=== PATIENT | male | born 1945 | race Caucasian/White ===

== ENCOUNTER → 2021-12-20 | Outpatient (CLI) | payer OTHER ==
[~2021-12-20] MED LIST: LISI1TAB51 PO; LOVASTATIN PO; TAMS0.4C32 PO
== END | disposition home or self-care (01) ==
LOC: SHCH 10:24
PROVIDERS: ATTEND Internal Medicine Cardiovascular Disease
DX: I35.0 Nonrheumatic aortic (valve) stenosis (principal); I11.9 Hypertensive heart disease without heart failure; I70.293 Other atherosclerosis of native arteries of extremities, bilateral legs; E78.5 Hyperlipidemia, unspecified
CPT/HCPCS: 93306; 93925

== ENCOUNTER → 2021-12-26 | Outpatient (CLI) | payer OTHER ==
[~2021-12-26] VITALS: Ht 175.3 cm; Wt 89.8 kg
[~2021-12-26] MED LIST changes: +REGADENOSON 0.4 MG/5 ML PF SYG IVP SCH
== END | disposition home or self-care (01) ==
LOC: SHCH 08:33
PROVIDERS: ATTEND Internal Medicine Cardiovascular Disease
DX: I20.9 Angina pectoris, unspecified (principal); R06.09 Other forms of dyspnea
CPT/HCPCS: 78452; 93017; 96374; A9500 ×2; J2785

== ENCOUNTER 2022-02-06 08:55 | Day surgery (SDC) | payer OTHER ==
[2022-02-05 10:00] LABS: HEMATOCRIT 37.7 % (42-54); LYMPHOCYTES % (AUTO) 29.1 % (21.0-51.0); MEAN CORPUSCULAR HEMOGLOBIN 33.5 pg (27.0-33.0); MEAN CORPUSCULAR HGB CONC 33.4 g/dL (32.0-36.0); MEAN CORPUSCULAR VOLUME 100.3 fL (79-99); MONOCYTES % (AUTO) 16.8 % (3.0-13.0); NEUTROPHILS % (AUTO) 49.6 % (40.0-77.0); PLATELET COUNT (AUTO) 197 K/uL (130-400); RED BLOOD CELL COUNT(AUTO) 3.76 MIL/uL (4.50-6.20); RED CELL DISTRIBUTION WIDTH 12.4 % (11.0-15.5); WHITE BLOOD COUNT (AUTO) 4.1 K/uL (4.8-10.8)
[2022-02-05 10:06] LABS: APPEARANCE,URINE Clear (CLEAR); BILIRUBIN,URINE Negative (NEGATIVE); COLOR,URINE Yellow (YELLOW); GLUCOSE, URINE (UA) Negative (NEGATIVE); KETONES,URINE Negative (NEGATIVE); LEUKOCYTE ESTERASE ,URINE Trace (NEGATIVE); NITRATE,URINE Negative (NEGATIVE); OCCULT BLOOD,URINE Negative (NEGATIVE); PROTEIN,URINE Negative (NEGATIVE)
[2022-02-05 10:16] LABS: CREATININE 0.8 mg/dL (0.5-1.5); POTASSIUM 4.7 mmol/L (3.5-5.1)
[2022-02-05 10:18] LABS: INR 0.95 (0.85-1.15); PROTHROMBIN TIME 10.4 SEC (9.6-11.6)
[2022-02-05 10:19] LABS: PARTIAL THROMBOPLASTIN TIME 30.1 SEC (26.3-35.5)
[2022-02-05 10:24] LABS: B-TYPE NATRIURETIC PEPTIDE 245 pg/mL (0-100)
[2022-02-05 10:36] LABS: BACTERIA,URINE Rare /HPF (None Seen); RBC,URINE 0-1 /HPF (0-1); SQUAMOUS EPITHELIAL CELL,UR Rare /HPF (0-2); WBC,URINE 0-1 /HPF (0-1)
[2022-02-06] VITALS (9 sets, daily range): BP systolic 116–139; BP diastolic 62–75
[~2022-02-06 08:55] MED LIST changes: +0.9% NACL 500ML IV.SOLN 500 ML IV SCH; +ASPI-1443 PO; +LISI10TA24 PO; -LISI1TAB51 PO; +LOVA40TA2 PO; -LOVASTATIN PO; -REGADENOSON 0.4 MG/5 ML PF SYG IVP SCH; -TAMS0.4C32 PO
[2022-02-06] MEDS ORDERED: ASPI-1026 PO (10:13)
[2022-02-06] MEDS ORDERED: 0.9%NACL 1000ML 1,000 ML IV ONE (10:28)
[2022-02-06] MEDS ORDERED: NITROGLYCERIN 50MG VIAL ONE (11:17)
[2022-02-06] MEDS ORDERED: LIDOCAINE HCL 400MG/20ML VIAL ONE (11:17)
[2022-02-06] MEDS ORDERED: HEPARIN 10,000 UNIT/10ML (1,000 UNIT/ML) VIAL ONE (11:17)
[2022-02-06] MEDS ORDERED: IOHEXOL 350 MG/ML 100ML INFUS..BTL IV ONE (11:17)
[2022-02-06] MEDS ORDERED: MIDAZOLAM HCL 1 MG/ML 2ML VIAL ONE (11:17)
[2022-02-06] MEDS ORDERED: BIVALIRUDIN 250 MG/VIAL IV ONE (11:17)
[2022-02-06] MEDS ORDERED: IOHEXOL-350 50ML VIAL IV ONE (11:17)
[2022-02-06] MEDS ORDERED: FENTANYL CITRATE PF 50 MCG/1 ML 2ML VIAL ONE (11:17)
[2022-02-06] MEDS ORDERED: LABETALOL 20MG SYG IV ONE ×2 (13:10→13:21)
[2022-02-06] MEDS ORDERED: METOPROLOL TARTRATE 1 MG/ML 5ML VIAL IV PRN (13:30)
[2022-02-06] MEDS ORDERED: DEXTROSE 50%-WATER 50 ML DISP.SYRIN IV PRN (13:30)
[2022-02-06] MEDS ORDERED: 0.9%NACL 1000ML 1,000 ML IV SCH (13:30)
[2022-02-06] MEDS ORDERED: GLUCAGON 1MG KIT 1 MG ML IM PRN (13:30)
[2022-02-06] MEDS ORDERED: NITROGLYCERIN 0.4 MG SL TAB SL PRN (13:30)
== END 2022-02-06 17:45 | disposition home or self-care (01) ==
LOC: DAH 08:55
PROVIDERS: ATTEND Internal Medicine Cardiovascular Disease
DX: I35.0 Nonrheumatic aortic (valve) stenosis (principal); I25.110 Atherosclerotic heart disease of native coronary artery with unstable angina pectoris; I11.0 Hypertensive heart disease with heart failure; I50.32 Chronic diastolic (congestive) heart failure; I87.2 Venous insufficiency (chronic) (peripheral); E78.5 Hyperlipidemia, unspecified; E11.51 Type 2 diabetes mellitus with diabetic peripheral angiopathy without gangrene; E66.3 Overweight; H34.01 Transient retinal artery occlusion, right eye; Z79.82 Long term (current) use of aspirin; Z68.29 Body mass index [BMI] 29.0-29.9, adult; Z87.891 Personal history of nicotine dependence; Z82.49 Family history of ischemic heart disease and other diseases of the circulatory system
CPT/HCPCS: 36415; 71045; 80048; 81001; 83880; 85025; 85610; 85730; 93005; 93460; A4215; A4216; A4221; A4222; A4223 ×3; A4606; A4663; C1894 ×3; J1644; J2250; J3010; J3490 ×2; J7030; Q9965 ×2; Q9967 ×2; 93456; 96360; 96361; 99156; 99157; J0583

== ENCOUNTER → 2022-02-22 | Outpatient (CLI) | payer OTHER ==
[~2022-02-22] MED LIST changes: -0.9% NACL 500ML IV.SOLN 500 ML IV SCH; +ASPI-1026 PO; -ASPI-1443 PO
== END | disposition home or self-care (01) ==
LOC: SHCH 12:20
PROVIDERS: ATTEND Internal Medicine Cardiovascular Disease
DX: I87.2 Venous insufficiency (chronic) (peripheral) (principal)
CPT/HCPCS: 93970

== ENCOUNTER → 2022-11-07 | Outpatient (CLI) | payer OTHER | END | disposition home or self-care (01) | LOC: SHCH 10:24 | PROVIDERS: ATTEND Internal Medicine Cardiovascular Disease | DX: I11.9 Hypertensive heart disease without heart failure (principal); E78.5 Hyperlipidemia, unspecified; Z95.1 Presence of aortocoronary bypass graft; Z95.2 Presence of prosthetic heart valve | CPT/HCPCS: 93306 ==

== ENCOUNTER → 2023-04-30 | Outpatient (CLI) | payer OTHER | END | disposition home or self-care (01) | LOC: SHCH 07:32 | PROVIDERS: ATTEND Internal Medicine Cardiovascular Disease | DX: I70.293 Other atherosclerosis of native arteries of extremities, bilateral legs (principal); I71.40 Abdominal aortic aneurysm, without rupture, unspecified; I70.0 Atherosclerosis of aorta; I70.8 Atherosclerosis of other arteries; I87.2 Venous insufficiency (chronic) (peripheral); Z95.1 Presence of aortocoronary bypass graft | CPT/HCPCS: 93925; 93970; 93978 ==

== ENCOUNTER → 2023-06-28 | Outpatient (CLI) | payer OTHER ==
[~2023-06-28] VITALS: Ht 175.3 cm; Wt 89.9 kg
[~2023-06-28] MED LIST changes: +AEC81 PO; +MULT-1367 PO
[2023-06-28 12:52] LABS: BASOPHILS # (AUTO) 0.04 K/uL (0.00-0.20); BASOPHILS % (AUTO) 0.9 % (0.0-5.0); EOSINOPHILS # (AUTO) 0.19 K/uL (0.00-0.70); EOSINOPHILS % (AUTO) 4.1 % (0.0-8.0); HEMATOCRIT 33.1 % (42-54); IMMATURE GRANULOCYTE ABSOLUTE 0.01 K/uL (0-1); LYMPHOCYTES # (AUTO) 1.6 K/uL (1.0-4.8); LYMPHOCYTES % (AUTO) 33.8 % (21.0-51.0); MEAN CORPUSCULAR HEMOGLOBIN 35.4 pg (27.0-33.0); MEAN CORPUSCULAR HGB CONC 33.8 g/dL (32.0-36.0); MEAN CORPUSCULAR VOLUME 104.7 fL (79-99); MONOCYTES # (AUTO) 0.6 K/uL (0.1-1.0); MONOCYTES % (AUTO) 12.2 % (3.0-13.0); NEUTROPHILS # (AUTO) 2.3 K/uL (1.8-7.7); NEUTROPHILS % (AUTO) 48.8 % (40.0-77.0); PLATELET COUNT (AUTO) 162 K/uL (130-400); RED BLOOD CELL COUNT(AUTO) 3.16 MIL/uL (4.50-6.20); RED CELL DISTRIBUTION WIDTH 12.9 % (11.0-15.5); WHITE BLOOD COUNT (AUTO) 4.7 K/uL (4.8-10.8)
[2023-06-28 13:01] LABS: CREATININE 0.8 mg/dL (0.5-1.5); POTASSIUM 4.8 mmol/L (3.5-5.1)
[2023-06-28 13:04] LABS: INR < 0.93 (0.85-1.15); PROTHROMBIN TIME 10.3 SEC (9.6-11.6)
[2023-06-28 13:05] LABS: PARTIAL THROMBOPLASTIN TIME 30.5 SEC (26.3-35.5)
[2023-06-28 13:24] VITALS: BP 158/74; PULSE 80; RESP 18
== END | disposition home or self-care (01) ==
LOC: DAH 10:00 → EDSTATUS 12:00
PROVIDERS: ATTEND Internal Medicine Cardiovascular Disease
DX: Z01.812 Encounter for preprocedural laboratory examination (principal); I70.203 Unspecified atherosclerosis of native arteries of extremities, bilateral legs; I35.0 Nonrheumatic aortic (valve) stenosis; I11.9 Hypertensive heart disease without heart failure; I87.2 Venous insufficiency (chronic) (peripheral); E78.5 Hyperlipidemia, unspecified; I25.10 Atherosclerotic heart disease of native coronary artery without angina pectoris; I25.84 Coronary atherosclerosis due to calcified coronary lesion; R06.09 Other forms of dyspnea; R07.89 Other chest pain; Z95.1 Presence of aortocoronary bypass graft; Z95.2 Presence of prosthetic heart valve; Z79.899 Other long term (current) drug therapy; Z79.82 Long term (current) use of aspirin
CPT/HCPCS: 36415; 80048; 85025; 85610; 85730

== ENCOUNTER 2023-07-17 08:57 | Day surgery (SDC) | payer OTHER ==
[2023-07-15 14:32] LABS: BASOPHILS # (AUTO) 0.05 K/uL (0.00-0.20); BASOPHILS % (AUTO) 0.9 % (0.0-5.0); EOSINOPHILS # (AUTO) 0.25 K/uL (0.00-0.70); EOSINOPHILS % (AUTO) 4.6 % (0.0-8.0); HEMATOCRIT 32.6 % (42-54); IMMATURE GRANULOCYTE ABSOLUTE 0.02 K/uL (0-1); LYMPHOCYTES # (AUTO) 1.7 K/uL (1.0-4.8); LYMPHOCYTES % (AUTO) 31.4 % (21.0-51.0); MEAN CORPUSCULAR HGB CONC 33.4 g/dL (32.0-36.0); MEAN CORPUSCULAR VOLUME 104.8 fL (79-99); MONOCYTES # (AUTO) 0.7 K/uL (0.1-1.0); MONOCYTES % (AUTO) 12.8 % (3.0-13.0); NEUTROPHILS # (AUTO) 2.7 K/uL (1.8-7.7); NEUTROPHILS % (AUTO) 49.9 % (40.0-77.0); PLATELET COUNT (AUTO) 211 K/uL (130-400); RED BLOOD CELL COUNT(AUTO) 3.11 MIL/uL (4.50-6.20); RED CELL DISTRIBUTION WIDTH 12.8 % (11.0-15.5); WHITE BLOOD COUNT (AUTO) 5.5 K/uL (4.8-10.8)
[2023-07-15 14:44] LABS: CREATININE 0.8 mg/dL (0.5-1.5); POTASSIUM 4.8 mmol/L (3.5-5.1)
[2023-07-15 14:46] LABS: INR < 0.93 (0.85-1.15); PROTHROMBIN TIME 10.3 SEC (9.6-11.6)
[2023-07-15 14:47] LABS: PARTIAL THROMBOPLASTIN TIME 30.3 SEC (26.3-35.5)
[2023-07-15 14:53] VITALS: BP 154/75; PULSE 82; RESP 18
[2023-07-17] VITALS (10 sets, daily range): BP systolic 108–167; BP diastolic 56–86; PULSE 80–94; RESP 11–18
[~2023-07-17] VITALS: Ht 175.3 cm; Wt 90.3 kg
[~2023-07-17 08:57] MED LIST changes: -ASPI-1026 PO
[2023-07-17] MEDS ORDERED: 0.9%NACL 1000ML 1,000 ML IV ONE (09:51)
[2023-07-17] MEDS ORDERED: HEPARIN 10,000 UNIT/10ML (1,000 UNIT/ML) VIAL ONE (11:31)
[2023-07-17] MEDS ORDERED: LIDOCAINE HCL 400MG/20ML VIAL ONE (11:31)
[2023-07-17] MEDS ORDERED: IODIXANOL 320 MG/ML 100 ML VIAL ONE (11:31)
[2023-07-17] MEDS ORDERED: FENTANYL CITRATE PF 50 MCG/1 ML 2ML VIAL ONE (12:04)
[2023-07-17] MEDS ORDERED: MIDAZOLAM HCL 1 MG/ML 2ML VIAL ONE ×2 (12:04→12:55)
[2023-07-17] MEDS ORDERED: 0.9%NACL 1000ML 1,000 ML IV SCH (14:00)
[2023-07-17] MEDS ORDERED: GLUCAGON 1MG KIT 1 MG ML IM PRN (14:00)
[2023-07-17] MEDS ORDERED: DEXTROSE 50%-WATER 50 ML DISP.SYRIN IV PRN (14:00)
== END 2023-07-17 17:30 | disposition home or self-care (01) ==
LOC: DAH 08:57
PROVIDERS: ATTEND Internal Medicine Cardiovascular Disease
DX: I70.213 Atherosclerosis of native arteries of extremities with intermittent claudication, bilateral legs (principal); I71.40 Abdominal aortic aneurysm, without rupture, unspecified; I77.1 Stricture of artery; I25.84 Coronary atherosclerosis due to calcified coronary lesion; I87.2 Venous insufficiency (chronic) (peripheral); I11.9 Hypertensive heart disease without heart failure; E78.5 Hyperlipidemia, unspecified; I35.0 Nonrheumatic aortic (valve) stenosis; Z79.899 Other long term (current) drug therapy; Z79.01 Long term (current) use of anticoagulants; Z82.49 Family history of ischemic heart disease and other diseases of the circulatory system; Z87.891 Personal history of nicotine dependence; Z95.2 Presence of prosthetic heart valve
CPT/HCPCS: 80048; 85025; 85610; 85730; 36415; 75625; 36200; 75716; 37252; 37253 ×3; C1769; C1894 ×4; C1753; J3010; J3490; J7030; J2250 ×2; J1644; Q9967; A4222; A4221; A4663; A4216; A4606; A4223 ×3; 96360; 96361; 99156; 99157

== ENCOUNTER → 2023-07-22 | Outpatient (CLI) | payer OTHER ==
[~2023-07-22] MED LIST changes: +IOHEXOL 350 MG/ML 100ML INFUS..BTL IV ONE
== END | disposition home or self-care (01) ==
LOC: RAH 09:34
PROVIDERS: ATTEND Internal Medicine Cardiovascular Disease
DX: I70.0 Atherosclerosis of aorta (principal); I71.40 Abdominal aortic aneurysm, without rupture, unspecified; K76.0 Fatty (change of) liver, not elsewhere classified; I70.8 Atherosclerosis of other arteries; K57.90 Diverticulosis of intestine, part unspecified, without perforation or abscess without bleeding; N32.89 Other specified disorders of bladder; N28.89 Other specified disorders of kidney and ureter; M47.815 Spondylosis without myelopathy or radiculopathy, thoracolumbar region
CPT/HCPCS: 74174; Q9967

== ENCOUNTER 2023-10-07 08:54 | Day surgery (SDC) | payer OTHER ==
[2023-10-03 12:41] LABS: BASOPHILS # (AUTO) 0.01 K/uL (0.00-0.20); BASOPHILS % (AUTO) 0.3 % (0.0-5.0); EOSINOPHILS % (AUTO) 2.7 % (0.0-8.0); IMMATURE GRANULOCYTE ABSOLUTE 0.01 K/uL (0-1); LYMPHOCYTES # (AUTO) 1.5 K/uL (1.0-4.8); LYMPHOCYTES % (AUTO) 38.9 % (21.0-51.0); MEAN CORPUSCULAR HGB CONC 34.1 g/dL (32.0-36.0); MEAN CORPUSCULAR VOLUME 102.7 fL (79-99); MONOCYTES # (AUTO) 0.5 K/uL (0.1-1.0); MONOCYTES % (AUTO) 12.6 % (3.0-13.0); NEUTROPHILS # (AUTO) 1.7 K/uL (1.8-7.7); NEUTROPHILS % (AUTO) 45.2 % (40.0-77.0); PLATELET COUNT (AUTO) 178 K/uL (130-400); RED BLOOD CELL COUNT(AUTO) 3.31 MIL/uL (4.50-6.20); RED CELL DISTRIBUTION WIDTH 12.7 % (11.0-15.5); WHITE BLOOD COUNT (AUTO) 3.7 K/uL (4.8-10.8)
[2023-10-03 12:50] VITALS: BP 160/70; PULSE 91; RESP 17
[2023-10-03 12:51] LABS: CREATININE 0.8 mg/dL (0.5-1.5); POTASSIUM 4.8 mmol/L (3.5-5.1)
[2023-10-03 12:57] LABS: INR < 0.93 (0.85-1.15); PROTHROMBIN TIME 10.2 SEC (9.6-11.6)
[2023-10-03 12:59] LABS: B-TYPE NATRIURETIC PEPTIDE 163 pg/mL (0-100); PARTIAL THROMBOPLASTIN TIME 30.3 SEC (26.3-35.5)
[2023-10-03 13:22] LABS: APPEARANCE,URINE CLEAR (CLEAR); BILIRUBIN,URINE NEGATIVE (NEGATIVE); COLOR,URINE LIGHT-YELLOW (YELLOW); GLUCOSE, URINE (UA) NEGATIVE (NEGATIVE); KETONES,URINE NEGATIVE (NEGATIVE); LEUKOCYTE ESTERASE ,URINE NEGATIVE Leu/uL (NEGATIVE); NITRATE,URINE NEGATIVE (NEGATIVE); OCCULT BLOOD,URINE NEGATIVE (NEGATIVE); PH,URINE 6.5 (5.0-8.0); PROTEIN,URINE NEGATIVE (NEGATIVE); UROBILINOGEN,URINE 0.2 mg/dL (0.2-1.0)
[2023-10-03 13:23] LABS: ADD UA MICROSCOPIC NO
[2023-10-07] VITALS (9 sets, daily range): BP systolic 127–174; BP diastolic 65–83; PULSE 61–84; RESP 16
[~2023-10-07] VITALS: Ht 175.3 cm; Wt 87.9 kg
[~2023-10-07 08:54] MED LIST changes: -IOHEXOL 350 MG/ML 100ML INFUS..BTL IV ONE
[2023-10-07 10:26] LABS: CREATININE 0.8 mg/dL (0.5-1.5)
[2023-10-07] MEDS ORDERED: LIDOCAINE HCL 400MG/20ML VIAL ONE (11:29)
[2023-10-07] MEDS ORDERED: IODIXANOL 320 MG/ML 100 ML VIAL ONE (11:29)
[2023-10-07] MEDS ORDERED: HEPARIN 10,000 UNIT/10ML (1,000 UNIT/ML) VIAL ONE (11:29)
[2023-10-07] MEDS ORDERED: NITROGLYCERIN 50MG VIAL ONE (11:29)
[2023-10-07] MEDS ORDERED: FENTANYL CITRATE PF 50 MCG/1 ML 2ML VIAL ONE ×2 (12:11→13:28)
[2023-10-07] MEDS ORDERED: MIDAZOLAM HCL 1 MG/ML 2ML VIAL ONE ×2 (12:12→13:04)
[2023-10-07] MEDS ORDERED: GLUCAGON 1MG KIT 1 MG ML IM PRN (14:00)
[2023-10-07] MEDS ORDERED: 0.9%NACL 1000ML 1,000 ML IV SCH (14:00)
[2023-10-07] MEDS ORDERED: DEXTROSE 50%-WATER 50 ML DISP.SYRIN IV PRN (14:00)
[2023-10-07] MEDS ORDERED: ACETAMINOPHEN WITH CODEINE 1 TAB TAB PO PRN (14:00)
[2023-10-07] MEDS ORDERED: CLOPIDOGREL 300MG TAB ONE (14:06)
[2023-10-07] MEDS ORDERED: ATROPINE 1MG SYG IVP ONE (14:40)
== END 2023-10-07 19:00 | disposition home or self-care (01) ==
LOC: DAH 08:54
PROVIDERS: ATTEND Internal Medicine Cardiovascular Disease
DX: I70.212 Atherosclerosis of native arteries of extremities with intermittent claudication, left leg (principal); T82.856A Stenosis of peripheral vascular stent, initial encounter; I25.10 Atherosclerotic heart disease of native coronary artery without angina pectoris; I25.84 Coronary atherosclerosis due to calcified coronary lesion; I87.2 Venous insufficiency (chronic) (peripheral); E78.5 Hyperlipidemia, unspecified; I11.9 Hypertensive heart disease without heart failure; H54.7 Unspecified visual loss; I35.0 Nonrheumatic aortic (valve) stenosis; E66.3 Overweight; Z86.73 Personal history of transient ischemic attack (TIA), and cerebral infarction without residual deficits; Z82.49 Family history of ischemic heart disease and other diseases of the circulatory system; Z87.891 Personal history of nicotine dependence; Z72.89 Other problems related to lifestyle; Z95.2 Presence of prosthetic heart valve; Z95.1 Presence of aortocoronary bypass graft; Z98.890 Other specified postprocedural states; Z68.29 Body mass index [BMI] 29.0-29.9, adult; Z79.01 Long term (current) use of anticoagulants; Z79.899 Other long term (current) drug therapy; Y83.8 Other surgical procedures as the cause of abnormal reaction of the patient, or of later complication, without mention of misadventure at the time of the procedure; Y92.89 Other specified places as the place of occurrence of the external cause
CPT/HCPCS: 80048 ×2; 83880; 85025; 85610; 85730; 81003; 36415 ×2; 75710; 37252; 37253 ×2; 85347; C9765; C1725 ×4; C1769 ×3; C1894 ×3; C1887; C1753; C1876 ×2; J3010 ×2; J3490 ×2; J1644 ×2; J2250 ×2; Q9967; A4215; A6402; A4222; A4221; A4663; A4216; A4606; A4223 ×3; 75716; 96360; 96361; 99156; 99157; J0461

== ENCOUNTER → 2024-01-06 | Outpatient (CLI) | payer OTHER | END | disposition home or self-care (01) | LOC: SHCH 07:54 | PROVIDERS: ATTEND Internal Medicine Cardiovascular Disease | DX: I73.9 Peripheral vascular disease, unspecified (principal) | CPT/HCPCS: 93978 ==

== ENCOUNTER → 2024-04-28 | Outpatient (CLI) | payer OTHER | END | disposition home or self-care (01) | LOC: SHCH 07:45 | PROVIDERS: ATTEND Internal Medicine Cardiovascular Disease | DX: I08.8 Other rheumatic multiple valve diseases (principal); I70.203 Unspecified atherosclerosis of native arteries of extremities, bilateral legs; Z95.2 Presence of prosthetic heart valve | CPT/HCPCS: 93306; 93925; 93978 ==

== ENCOUNTER → 2024-05-15 | Outpatient (CLI) | payer OTHER ==
[~2024-05-15] MED LIST changes: +IOHEXOL-350 75 ML VIAL IV ONE
== END | disposition home or self-care (01) ==
LOC: RAH 07:46
PROVIDERS: ATTEND Family Medicine
DX: I70.0 Atherosclerosis of aorta (principal); R19.00 Intra-abdominal and pelvic swelling, mass and lump, unspecified site
CPT/HCPCS: 74178; Q9967

== ENCOUNTER 2024-05-25 10:32 | Observation (INO) | payer OTHER ==
[~2024-05-25] VITALS: Ht 175.3 cm; Wt 91.9 kg
[~2024-05-25 10:32] MED LIST changes: -IOHEXOL-350 75 ML VIAL IV ONE
[2024-05-25] MEDS: FUROSEMIDE 40MG VIAL IV ONE (11:21)
[2024-05-25 11:26] LABS: BASOPHILS # (AUTO) 0.03 K/uL (0.00-0.20); BASOPHILS % (AUTO) 0.8 % (0.0-5.0); EOSINOPHILS # (AUTO) 0.13 K/uL (0.00-0.70); EOSINOPHILS % (AUTO) 3.4 % (0.0-8.0); HEMATOCRIT 30.7 % (42-54); IMMATURE GRANULOCYTE ABSOLUTE 0.01 K/uL (0-1); LYMPHOCYTES # (AUTO) 1.1 K/uL (1.0-4.8); LYMPHOCYTES % (AUTO) 28.3 % (21.0-51.0); MEAN CORPUSCULAR HEMOGLOBIN 34.9 pg (27.0-33.0); MEAN CORPUSCULAR HGB CONC 33.6 g/dL (32.0-36.0); MEAN CORPUSCULAR VOLUME 104.1 fL (79-99); MONOCYTES # (AUTO) 0.5 K/uL (0.1-1.0); MONOCYTES % (AUTO) 11.8 % (3.0-13.0); NEUTROPHILS # (AUTO) 2.1 K/uL (1.8-7.7); NEUTROPHILS % (AUTO) 55.4 % (40.0-77.0); PLATELET COUNT (AUTO) 165 K/uL (130-400); RED BLOOD CELL COUNT(AUTO) 2.95 MIL/uL (4.50-6.20); RED CELL DISTRIBUTION WIDTH 13.8 % (11.0-15.5); WHITE BLOOD COUNT (AUTO) 3.8 K/uL (4.8-10.8)
[2024-05-25 11:32] LABS: CREATININE 0.9 mg/dL (0.5-1.3); POTASSIUM 4.2 mmol/L (3.5-5.1)
[2024-05-25 11:53] LABS: B-TYPE NATRIURETIC PEPTIDE 747 pg/mL (0-100)
[2024-05-25 11:56] LABS: INR 1.45 (0.85-1.15); PROTHROMBIN TIME 15.2 SEC (9.6-11.6)
[2024-05-25 11:58] LABS: PARTIAL THROMBOPLASTIN TIME 44.7 SEC (26.3-35.5)
[2024-05-25] MEDS ORDERED: POLYETHYLENE GLYCOL 3350 17 GM POWD.PACK PO PRN (12:00)
[2024-05-25] MEDS ORDERED: ARTIFICAL TEARS SOL 15 ML OP PRN (12:00)
[2024-05-25] MEDS ORDERED: ONDANSETRON 4MG INJ IV PRN (12:00)
[2024-05-25] MEDS ORDERED: guaiFENesin SUGAR-FREE 100 MG/5 ML UDCUP PO PRN (12:00)
[2024-05-25] MEDS ORDERED: acetaMINOPHEN 325 MG TAB PO PRN ×2 (12:00)
[2024-05-25] MEDS ORDERED: doCUSate SODIUM 100 MG CAP PO PRN (12:00)
[2024-05-25] MEDS ORDERED: NITROGLYCERIN 0.4 MG SL TAB SL PRN (12:00)
[2024-05-25] MEDS ORDERED: DiphenhydrAMINE HCL 25 MG CAPSULE PO PRN (12:00)
[2024-05-25] MEDS: ASPIRIN 325MG TAB PO ONE (12:24)
[2024-05-25] MEDS: IpraTROPium 0.5 MG/2.5 ML INH IH SCH (12:29)
[2024-05-25 12:34] VITALS: PULSE 77; RESP 18; O2SAT 99
[2024-05-25 12:35] VITALS: PULSE 77; RESP 18
[2024-05-25] MEDS ORDERED: TAMS-1 PO (12:40)
[2024-05-25] MEDS ORDERED: RIVA20TA PO (12:40)
[2024-05-25] MEDS ORDERED: NITR0.4T50 SL (12:40)
[2024-05-25] MEDS ORDERED: ATOR10TA69 PO (12:40)
[2024-05-25] MEDS ORDERED: METO-391 PO (12:40)
[2024-05-25 15:04] LABS: SARS-CoV-2, RNA, NAAT NEGATIVE SARS CoV-2 (NEGATIVE)
[2024-05-25 19:26] VITALS: PULSE 79; RESP 18; O2SAT 100
[2024-05-25] MEDS: FAMOTIDINE 20MG TAB PO SCH (19:55)
[2024-05-25] MEDS: ATORVASTATIN 40 MG TABLET PO SCH (19:55)
[2024-05-25] MEDS ORDERED: IOHEXOL 350 MG/ML 100ML INFUS..BTL IV ONE (22:38)
[2024-05-25 23:18] VITALS: BP 166/94; PULSE 87; RESP 18
[2024-05-25 23:20] VITALS: O2SAT 98
[2024-05-25 23:54] VITALS: PULSE 102; RESP 20; O2SAT 100
[2024-05-26] MEDS: hydrALAZine 25MG TABLET PO PRN (00:58)
[2024-05-26 03:51] VITALS: BP 160/82; PULSE 90; RESP 18
[2024-05-26 04:26] LABS: HEMOGLOBIN A1C 5.3 % (4.0-6.0)
[2024-05-26 04:29] LABS: ALBUMIN 3.1 g/dL (3.5-5.0); BILIRUBIN,TOTAL 0.4 mg/dL (0.2-1.0); CREATININE 1.1 mg/dL (0.5-1.3); POTASSIUM 3.8 mmol/L (3.5-5.1); TOTAL PROTEIN, SERUM 6.3 g/dL (6.0-8.3)
[2024-05-26 07:00] VITALS: PULSE 77; RESP 18
[2024-05-26 08:25] VITALS: PULSE 80; RESP 18; O2SAT 99
[2024-05-26 08:52] VITALS: BP 151/70; PULSE 78; RESP 18
[2024-05-26 09:00] VITALS: O2SAT 98
[2024-05-26 11:24] VITALS: PULSE 94; RESP 18
[2024-05-26] MEDS: metOPROLol sucCINATE 50 MG TAB.SR.24H PO SCH (12:17)
[2024-05-26] MEDS ORDERED: ATORVASTATIN 10 MG TABLET PO SCH (21:00)
[2024-05-27] MEDS ORDERED: RIVAROXABAN 20 MG TABLET PO SCH (09:00)
[2024-05-27] MEDS ORDERED: metOPROLol sucCINATE 50 MG TAB.SR.24H PO SCH (09:00)
[2024-05-27] MEDS ORDERED: tamSULOsin HCL 0.4 MG CAP.ER.24H PO SCH (09:00)
[2024-05-27] MEDS ORDERED: ASPIRIN 81 MG EC TAB PO SCH (09:00)
[2024-05-27] MEDS ORDERED: LISINOPRIL 10 MG TABLET PO SCH (09:00)
== END 2024-05-26 12:50 | disposition home or self-care (01) ==
LOC: EDH 10:32 → EDHIP 11:51 → 2DH 21:43
PROVIDERS: ADMIT Internal Medicine Critical Care Medicine; ATTEND Internal Medicine Critical Care Medicine
DX: I11.0 Hypertensive heart disease with heart failure (principal); Z20.822 Contact with and (suspected) exposure to COVID-19; I50.33 Acute on chronic diastolic (congestive) heart failure; I48.92 Unspecified atrial flutter; I25.10 Atherosclerotic heart disease of native coronary artery without angina pectoris; R60.0 Localized edema; E78.00 Pure hypercholesterolemia, unspecified; Z79.899 Other long term (current) drug therapy; Z95.1 Presence of aortocoronary bypass graft; Z79.82 Long term (current) use of aspirin; Z79.01 Long term (current) use of anticoagulants; Z95.3 Presence of xenogenic heart valve
CPT/HCPCS: 96374; 99285; 82550 ×2; 84484 ×3; 80061; 80048; 83880; 85025; 85378; 85610; 85730; 36415 ×2; 87635; 71045; 71270; 93970; 93005; 84145; 83036; 80053; 97161; 97116; 94640; G0378 ×24; J1940; Q9967; 94664; G8980-CH; G8983-CH

== ENCOUNTER 2024-08-03 06:59 | Observation (INO) | payer OTHER ==
[2024-07-30 11:16] LABS: POTASSIUM 3.7 mmol/L (3.5-5.1)
[2024-07-30 11:38] VITALS: BP 148/79; PULSE 106; RESP 19; TEMP 97.9
[2024-07-30 11:38] LABS: BASOPHILS # (AUTO) 0.04 K/uL (0.00-0.20); BASOPHILS % (AUTO) 0.9 % (0.0-5.0); EOSINOPHILS % (AUTO) 2.2 % (0.0-8.0); HEMATOCRIT 31.2 % (42-54); IMMATURE GRANULOCYTE ABSOLUTE 0.01 K/uL (0-1); LYMPHOCYTES % (AUTO) 22.5 % (21.0-51.0); MEAN CORPUSCULAR HEMOGLOBIN 35.4 pg (27.0-33.0); MEAN CORPUSCULAR HGB CONC 33.3 g/dL (32.0-36.0); MEAN CORPUSCULAR VOLUME 106.1 fL (79-99); MONOCYTES # (AUTO) 0.6 K/uL (0.1-1.0); MONOCYTES % (AUTO) 12.9 % (3.0-13.0); NEUTROPHILS # (AUTO) 2.7 K/uL (1.8-7.7); NEUTROPHILS % (AUTO) 61.3 % (40.0-77.0); PLATELET COUNT (AUTO) 158 K/uL (130-400); RED BLOOD CELL COUNT(AUTO) 2.94 MIL/uL (4.50-6.20); RED CELL DISTRIBUTION WIDTH 14.1 % (11.0-15.5); WHITE BLOOD COUNT (AUTO) 4.5 K/uL (4.8-10.8)
[2024-07-30 11:47] LABS: INR 1.17 (0.85-1.15); PROTHROMBIN TIME 12.5 SEC (9.6-11.6)
[2024-07-30 11:49] LABS: PARTIAL THROMBOPLASTIN TIME 34.5 SEC (26.3-35.5)
[2024-08-03] VITALS (15 sets, daily range): BP systolic 123–153; BP diastolic 60–98; PULSE 68–127; RESP 12–18; TEMP 97.5–98; O2SAT 98–99
[~2024-08-03] VITALS: Ht 175.3 cm; Wt 89.2 kg
[~2024-08-03 06:59] MED LIST changes: +ATOR10TA69 PO; +FURO40TA5 PO; -LISI10TA24 PO; -LOVA40TA2 PO; +METO-391 PO; +MULT-1289 PO; -MULT-1367 PO; +RIVA20TA PO; +TAMS-1 PO
--- NOTE | 2024-08-03 07:24 | EKG ---
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
[2024-08-03] MEDS: LIDOCAINE HCL 2% VISCOUS 15 ML UDCUP PO ONE (07:30)
[2024-08-03] MEDS: 0.9%NACL 1000ML 1,000 ML IV ONE (08:20)
--- NOTE | 2024-08-03 09:27 | EKG ---
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
[2024-08-03] MEDS ORDERED: AMIOdarone 150MG VIAL IV STA (09:29)
[2024-08-03] MEDS ORDERED: DEXTROSE 50%-WATER 50 ML DISP.SYRIN IV PRN (09:30)
[2024-08-03] MEDS ORDERED: DEXTROSE 5% IV SCH (09:30)
[2024-08-03] MEDS ORDERED: GLUCAGON 1MG KIT 1 MG ML IM PRN (09:30)
[2024-08-03] MEDS ORDERED: NITROGLYCERIN 0.4 MG SL TAB SL PRN (09:30)
[2024-08-03] MEDS ORDERED: metoPROLOL tartRATE 1 MG/ML 5ML VIAL IV PRN (09:30)
[2024-08-03] MEDS ORDERED: WATER IV SCH (09:30)
[2024-08-03] MEDS ORDERED: AMIODARONE IV SCH (09:30)
--- NOTE | 2024-08-03 09:35 | PRN ---
Procedure Note INDICATION FOR PROCEDURE: [] Hypercoagulable state AFib with RVR PROCEDURE: [] Conscious sedation Transesophageal echocardiogram Direct current cardioversion DATE OF PROCEDURE: August 03, 2024 SOFTWARE ENGINEERING SUPERVISOR: Gage DunhamABrennaCAlexi PROCEDURE NOTE: [] Patient was adequately sedated with a total of 6 mg of Versed and 150 mcg of fen tanyl. Probe was passed into esophagus images were obtained and there was no evidence of atrial appendage thrombus or clot. Patient was administered direct current cardioversion initially at 120 joules x1, then at 200 joules x4 to obtain normal sinus rhythm. No complications occurred FINDINGS: [] Please see separate GERARDO report No evidence of left atrial appendage thrombus or clot Negative bubble study Ascending aorta and transverse aorta free of any significant atherosclerotic plaque IMPRESSION: [] Gerardo negative for atrial appendage thrombus Successful direct current cardioversion PLAN: [] Monitor patient overnight in the hospital Initiate amiodarone drip after boluses administered Probable discharge home tomorrow Place patient on telemetry unit GAGE RAMIREZ MD Aug 03, 2024 09:35
--- NOTE | 2024-08-03 09:37 | PN ---
PROGRESS NOTE PROBLEM LIST: Paroxysmal atrial fibrillation with rapid ventricular response Successful direct current cardioversion after negative transesophageal echocardiogram on August 03, 2024 Moderate mitral regurgitation and tricuspid regurgitation Normal functioning bioprosthetic aortic valve Study negative for left atrial appendage thrombus clot PFO or ASD Coronary artery status post CABG Peripheral arterial disease status post lower extremity intervention INTERIM HISTORY OF PRESENT ILLNESS: Patient had successful direct current cardioversion however did require a total of 5 attempts and I would like to put patient in the hospital overnight for amiodarone drip after bolus is admini stered and keep patient on telemetry REVIEW OF SYSTEMS: No fever, headache, chest pain, abdominal pain, nausea, vomiting, or diarrhea. VITAL SIGNS Vital Signs Date Time Temp Pulse Resp B/P (MAP) Pulse Ox O2 Delivery O2 Flow Rate FiO2 08/03/24 07:10 97.7 114 17 142/74 98 Room Air 21 LABS/MEDS Current Medications Midazolam HCl 4 mg ONCE ONCE IVP; Start 08/03/24 at 07:30; Stop 08/03/24 at 07:31; Status DC Fentanyl Citrate 200 mcg ONCE ONCE IVP; Start 08/03/24 at 07:30; Stop 08/03/24 at 07:31; Status DC Lidocaine HCl 15 ml ONCE ONCE PO; Start 08/03/24 at 07:30; Stop 08/03/24 at 07:31; Status DC Midazolam HCl 2 mg ONCE ONCE IVP; Start 08/03/24 at 07:30; Stop 08/03/24 at 07:31; Status DC Sodium Chloride 1,000 ml @ As Directed STK-MED ONCE IV Last administered on 08/03/24at 08:20; Start 08/03/24 at 08:17; Stop 08/03/24 at 08:18; Status DC PHYSICAL EXAMINATION: GENERAL: No acute distress. HEENT: Normocephalic, atraumatic. CARDIAC: Positive S1 and S2. No murmurs. LUNGS: Clear to auscultation bilaterally. ABDOMEN: Bowel sounds present, soft, nontender. EXTREMITIES: No edema bilaterally. NEUROLOGIC: Cranial nerves 2-12 grossly intact. PSYCHIATRIC: Calm. TELEMETRY: Currently in sinus ASSESSMENT: Paroxysmal atrial fibrillation status post direct current cardioversion PLAN: Patient will be administered IV amiodarone overnight Continue home medications Continue patient on telemetry Possible discharge tomorrow ADAMA RAMIREZ MD Aug 03, 2024 09:37
[2024-08-03] MEDS: AMIOdarone 150MG VIAL 150 MG in DEXTROSE 5%-WATER 100 ML IV PRN (10:12)
[2024-08-03] MEDS: FENTanyl CITRate PF 50 MCG/1 ML 2ML VIAL IVP ONE (10:28)
[2024-08-03] MEDS: MIDAZOLAM HCL 1 MG/ML 2ML VIAL IVP ONE ×2 (10:30→14:00)
[2024-08-03] MEDS: AMIODARONE 360MG/200ML D5W(1MG/MIN) IV SCH (11:52)
[2024-08-03] MEDS: AMIODARONE 540 MG/D5W 300ML (0.5MG/MIN) IV SCH (18:46)
[2024-08-03] MEDS: MELATONIN 5 MG TABLET PO SCH (21:54)
[2024-08-04 03:27] VITALS: BP 144/91; PULSE 93; RESP 16; TEMP 98.6
[2024-08-04 08:00] VITALS: O2SAT 99
--- NOTE | 2024-08-04 08:11 | PN ---
PROGRESS NOTE PROBLEM LIST: Paroxysmal atrial fibrillation with rapid ventricular response Successful direct current cardioversion after negative transesophageal echocardiogram on August 03, 2024 Moderate mitral regurgitation and tricuspid regurgitation Normal functioning bioprosthetic aortic valve Study negative for left atrial appendage thrombus clot PFO or ASD Coronary artery status post CABG Peripheral arterial disease status post lower extremity intervention INTERIM HISTORY OF PRESENT ILLNESS: Overnight patient did have a return to a sinus rhythm early this morning. He has required IV amiodarone which was helpful in helping stabilize rhythm and he has since returned back to a sinus mechanism. He currently denies any complaints did not experience any chest pain pressure tightness not experienced any palpitations. Amiodarone drip is almost complete. REVIEW OF SYSTEMS: No fever, headache, chest pain, abdominal pain, nausea, vomiting, or diarrhea. VITAL SIGNS Vital Signs Date Time Temp Pulse Resp B/P (MAP) Pulse Ox O2 Delivery O2 Flow Rate FiO2 08/04/24 03:27 98.6 93 16 144/91 97 Room Air 08/03/24 20:00 0 21 LABS/MEDS Current Medications Midazolam HCl 4 mg ONCE ONCE IVP Last administered on 08/03/24at 10:30; Start 08/03/24 at 07:30; Stop 08/03/24 at 07:31; Status DC Fentanyl Citrate 200 mcg ONCE ONCE IVP Last administered on 08/03/24at 10:28; Start 08/03/24 at 07:30; Stop 08/03/24 at 07:31; Status DC Lidocaine HCl 15 ml ONCE ONCE PO Last administered on 08/03/24at 07:30; Start 08/03/24 at 07:30; Stop 08/03/24 at 07:31; Status DC Midazolam HCl 2 mg ONCE ONCE IVP; Start 08/03/24 at 07:30; Stop 08/03/24 at 07:31; Status DC Sodium Chloride 1,000 ml @ As Directed STK-MED ONCE IV Last administered on 08/03/24at 08:20; Start 08/03/24 at 08:17; Stop 08/03/24 at 08:18; Status DC Amiodarone HCl NEED DOSE AND IV FLUID AD STAT IV; Start 08/03/24 at 09:29; Stop 08/03/24 at 10:00; Status DC Amiodarone HCl 150 mg AD STAT IV; Start 08/03/24 at 09:29; Stop 08/03/24 at 10:00; Status DC Metoprolol Tartrate 5 mg Q5M PRN IV; Start 08/03/24 at 09:30 Nitroglycerin 0.4 mg AD PRN SL; Start 08/03/24 at 09:30; Stop 09/02/24 at 09:29 Amiodarone HCl 1000 mg/Dextrose 520 ml @ 21 mls/hr ONCE IV; Start 08/03/24 at 09:30; Stop 08/03/24 at 10:00; Status DC Rivaroxaban 20 mg DAILY PO; Start 08/04/24 at 09:00; Stop 09/03/24 at 08:59 Amiodarone HCl 150 mg/Dextrose 103 ml @ 0 mls/hr AD PRN IV Last administered on 08/03/24at 10:12; Start 08/03/24 at 09:30; Stop 08/04/24 at 06:49; Status DC Dextrose 50 ml AD PRN IV; Start 08/03/24 at 09:30; Stop 09/02/24 at 09:29 Glucagon 1 mg AD PRN IM; Start 08/03/24 at 09:30; Stop 09/02/24 at 09:29 Amiodarone HCl 360 mg/Dextrose 200 ml @ 33.333 mls/ hr PROTOCOL IV Last administered on 08/03/24at 11:52; Start 08/03/24 at 10:00; Stop 09/02/24 at 09:59 Amiodarone HCl 540 mg/Dextrose 300 ml @ 16.667 mls/ hr PROTOCOL IV Last administered on 08/03/24at 18:46; Start 08/03/24 at 10:30; Stop 09/02/24 at 10:29 Melatonin 10 mg HS PO Last administered on 08/03/24at 21:54; Start 08/03/24 at 21:00; Stop 09/02/24 at 20:59 PHYSICAL EXAMINATION: GENERAL: No acute distress. HEENT: Normocephalic, atraumatic. CARDIAC: Positive S1 and S2. No murmurs. LUNGS: Clear to auscultation bilaterally. ABDOMEN: Bowel sounds present, soft, nontender. EXTREMITIES: No edema bilaterally. NEUROLOGIC: Cranial nerves 2-12 grossly intact. PSYCHIATRIC: Calm. TELEMETRY: AFib/a flutter returned to sinus rhythm in approximately 3 this morning ASSESSMENT: Paroxysmal atrial fibrillation with rapid ventricular response Successful direct current cardioversion after negative transesophageal echocardiogram on August 03, 2024 Moderate mitral regurgitation and tricuspid regurgitation Normal functioning bioprosthetic aortic valve Study negative for left atrial appendage thrombus clot PFO or ASD Coronary artery status post CABG Peripheral arterial disease status post lower extremity intervention PLAN: At this time patient will continue on Toprol-XL 50 mg twice daily We will discharge patient home on amiodarone 200 mg daily in addition to continued Xarelto use Would consult electrophysiology as an outpatient Patient will be discharged home later today ADAMA RAMIREZ MD Aug 04, 2024 08:11
--- NOTE | 2024-08-04 09:24 | EKG ---
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: [id number] : 1945 Requested By: GAGE ETIENNE Order Number: [id number] Reading MD: Gage Etienne Measurements Intervals [place] Rate: 121 P: 31 FL: 200 QRS: -14 QRSD: 93 T: 17 QT: 374 QTc: 472 Interpretive Statements Sinus rhythm Multiform ventricular premature complexes Low voltage, precordial leads Nonspecific T abnormalities, anterior leads Compared to ECG 08/03/2024 10:25:28 Ventricular premature complex(es) now present Low QRS voltage now present T-wave abnormality now present ST (T wave) deviation no longer present Possible ischemia no longer present Electronically Signed On 08-06-2024 18:31:41 AIRCRAFT LANDING GEAR INSPECTOR by Gage Etienne Please click the below link to view image of tracing.
[2024-08-04] MEDS: AMIOdarone 200 MG TABLET PO SCH (10:34)
[2024-08-04] MEDS: RIVAROXABAN 20 MG TABLET PO SCH (10:34)
--- NOTE | 2024-08-05 07:52 | HMCSR ---
APPROVED REPORT EXAM: Transesophageal echocardiogram with color flow Doppler. INDICATION ICD: Unspecified Atrial fibrillation I48.91 PROCEDURE After obtaining informed consent, patient underwent transesophageal echo in the Patient Room . 15 mL 2% Viscous Lidocaine was given as a topical anesthetic prior to the administration of the consc ious sedation. Type of Sedation: Sedation was administered by Please refer to medication administration record. . Sedation was achieved with Please refer to medication administration record. intravenously. Transesophageal probe was inserted and advanced into esophagus without difficulty by Gage Etienne MD. Echo enhancement indication: R/O Septal defect. Echo enhancement agent administered: Agitated Saline. DAVID was performed and images were obtained, probe was removed without complications. Prior to cardioversion, of Please refer to medication administration record. was administered. Synchronized Cardioversion attempted: Unsuccessful with 4 attempts. 120/200/200/200 joules Rhythm following Synchronized Cardioversion: Atrial fibrillation Throughout the procedure, the blood pressure, pulse oximetry, cardiac rhythm, and rate were monitored . The patient tolerated the procedure without adverse effects. Recovery from conscious sedation was une ventful and vital signs were stable. Left Ventricle Left ventricular cavity size is normal. There is normal left ventricular wall thickness. LVEF is 60-6 5%. Right Ventricle The right ventricle is normal size. The right ventricular systolic function is normal. Atria No left atrial appendage thrombus noted. The left atrium is moderately dilated. Negative bubble study . No evidence of PFO by agitated saline. The right atrium size is normal. Aortic Valve Bioprosthetic aortic valve is present. No paravalvular leak, perivalvular leak noted. No regurgitatio n is present. There is no aortic valvular stenosis. Mitral Valve The mitral valve is mildly thickened. There is mild-moderate mitral valve regurgitation noted. There is no mitral valve stenosis. Tricuspid Valve The tricuspid valve leaflets appear normal. There is moderate tricuspid valve regurgitation noted. Pulmonic Valve The pulmonary valve is normal in structure and function. There is no pulmonic valvular regurgitation. Great Vessels The aortic root is normal in size. Pericardium The pericardium appears normal. Conclusion LVEF is 60-65%. No left atrial appendage thrombus noted. The left atrium is moderately dilated. Negative bubble study. No evidence of PFO by agitated saline. There is mild-moderate mitral valve regurgitation noted.
== END 2024-08-04 11:10 | disposition home or self-care (01) ==
LOC: DAH 06:59 → DAHIP 07:00 → DAH 07:00 → 2AH 14:00
PROVIDERS: ADMIT Internal Medicine Cardiovascular Disease; ATTEND Internal Medicine Cardiovascular Disease
DX: I48.0 Paroxysmal atrial fibrillation (principal); I48.3 Typical atrial flutter; I11.0 Hypertensive heart disease with heart failure; I50.31 Acute diastolic (congestive) heart failure; I08.1 Rheumatic disorders of both mitral and tricuspid valves; I70.203 Unspecified atherosclerosis of native arteries of extremities, bilateral legs; D68.59 Other primary thrombophilia; N40.0 Benign prostatic hyperplasia without lower urinary tract symptoms; E78.5 Hyperlipidemia, unspecified; I25.10 Atherosclerotic heart disease of native coronary artery without angina pectoris; I87.2 Venous insufficiency (chronic) (peripheral); Z95.3 Presence of xenogenic heart valve; Z95.1 Presence of aortocoronary bypass graft; Z79.899 Other long term (current) drug therapy
CPT/HCPCS: 80048; 85025; 85610; 85730; 36415; 96374; 96376; 96361; 92960; 93325; 93312; 93005 ×3; G0378 ×23; J3010; J7030; J2250 ×2; J7060 ×2; J0282 ×2; A4615; A4215; A4223 ×3; A4657; A4222; A4221; A4663; A4216 ×2; A4606; 99152; G0500

== ENCOUNTER 2024-09-03 06:00 | Day surgery (SDC) | payer OTHER ==
[2024-09-01 08:52] LABS: BASOPHILS # (AUTO) 0.04 K/uL (0.00-0.20); BASOPHILS % (AUTO) 0.9 % (0.0-5.0); EOSINOPHILS # (AUTO) 0.18 K/uL (0.00-0.70); EOSINOPHILS % (AUTO) 3.8 % (0.0-8.0); HEMATOCRIT 35.6 % (42-54); IMMATURE GRANULOCYTE ABSOLUTE 0.01 K/uL (0-1); LYMPHOCYTES # (AUTO) 1.4 K/uL (1.0-4.8); LYMPHOCYTES % (AUTO) 29.3 % (21.0-51.0); MEAN CORPUSCULAR HEMOGLOBIN 35.3 pg (27.0-33.0); MEAN CORPUSCULAR HGB CONC 32.9 g/dL (32.0-36.0); MEAN CORPUSCULAR VOLUME 107.6 fL (79-99); MONOCYTES # (AUTO) 0.7 K/uL (0.1-1.0); MONOCYTES % (AUTO) 15.8 % (3.0-13.0); NEUTROPHILS # (AUTO) 2.3 K/uL (1.8-7.7); PLATELET COUNT (AUTO) 168 K/uL (130-400); RED BLOOD CELL COUNT(AUTO) 3.31 MIL/uL (4.50-6.20); RED CELL DISTRIBUTION WIDTH 14.7 % (11.0-15.5); WHITE BLOOD COUNT (AUTO) 4.7 K/uL (4.8-10.8)
[2024-09-01 09:02] LABS: INR 1.62 (0.85-1.15); PROTHROMBIN TIME 16.9 SEC (9.6-11.6)
[2024-09-01 09:03] VITALS: BP 137/61; PULSE 87; RESP 18; TEMP 97.2
[2024-09-01 09:03] LABS: PARTIAL THROMBOPLASTIN TIME 48.9 SEC (26.3-35.5)
[2024-09-01 09:05] LABS: CREATININE 1.3 mg/dL (0.5-1.3); POTASSIUM 4.8 mmol/L (3.5-5.1)
--- NOTE | 2024-09-01 09:44 | EKG ---
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
[~2024-09-03] VITALS: Ht 175.3 cm; Wt 88.0 kg
[2024-09-03] VITALS (7 sets, daily range): BP systolic 106–136; BP diastolic 48–74; PULSE 66–79; RESP 14–18; TEMP 97.4–97.5
--- NOTE | 2024-09-03 06:52 | EKG ---
[facility] Test Date: 2024-09-03 Test Time: 07:14:54 Pat Name: JULIO SEN Department: [facility] Room: [facility] Gender: M Road Maker: [id number] : 1945 Requested By: ANA SHERWOOD Order Number: [id number] Reading MD: Blayne Sue Measurements Intervals [place] Rate: 76 P: 0 MI: 0 QRS: 20 QRSD: 104 T: 12 QT: 436 QTc: 491 Interpretive Statements Atrial flutter Incomplete RBBB Compared to ECG 08/04/2024 07:59:34 Sinus rhythm no longer present Ventricular premature complex(es) no longer present T-wave abnormality no longer present Electronically Signed On 09-06-2024 17:22:41 EM PHYSICIAN by Blayne Sue Please click the below link to view image of tracing.
[2024-09-03] MEDS ORDERED: proPOFol 10 MG/ML 20ML VIAL IV ONE (07:20)
--- NOTE | 2024-09-03 08:35 | NUR ---
BOTH PT AND GIRLFRIEND WERE GIVEN VERBAL AND WRITTEN DISCHARGE INSTRUCTIONS. BOTH GIVEN INFORMATION ON AMIODARONE AND METOPROLOL "ASKED BY GIRLFRIEND" I DID EXPLAIN VERBALLY THE USE OF BOTH MEDICATIONS AND GAVE THEM INFORMATION FOR BOTH MEDICATIONS AND IMPORTANCE TO CONTINUE MEDICATION REGIMEN TO MAINTAIN A NSR.
--- NOTE | 2024-09-03 09:44 | PRN ---
Procedure: [facility] Cardioversion Procedure Note DATE OF PROCEDURE: Sep 03, 2024 PROCEDURE PERFORMED: DIRECT-CURRENT CARDIOVERSION PREFORMING PHYSICIAN: Inocencia Hammond MD INDICATION: atrial flutter PROCEDURE NOTE: After informed consent was obtained, and timeout procedure performed, as well as verification of resuscitative equipment availability, the patient was sedated per anesthesia. When adequate sedation was obtained the patient underwent direct-current cardioversion with [200] J of synchronized, biphasic, direct- current energy to sinus rhythm. The patient tolerated the procedure well. There were no immediate complications noted. COMPLICATIONS: None, the patient tolerated the procedure well and there were no immediate complications noted. He persisted in [sinus rhythm] for several minutes of monitoring at bedside and this was confirmed on twelve-lead EKG. DISCHARGE RECOMMENDATIONS: [Continue home medications.] plan for catheter ablation October 05, 2023 INOCENCIA LAWLER MD Sep 03, 2024 09:44
== END 2024-09-03 08:50 | disposition home or self-care (01) ==
LOC: DAH 06:00
PROVIDERS: ATTEND Student in an Organized Health Care Education/Training Program
DX: I48.19 Other persistent atrial fibrillation (principal); I48.3 Typical atrial flutter; I45.10 Unspecified right bundle-branch block; I10 Essential (primary) hypertension; E78.5 Hyperlipidemia, unspecified; H54.7 Unspecified visual loss; I25.10 Atherosclerotic heart disease of native coronary artery without angina pectoris; Z95.1 Presence of aortocoronary bypass graft; Z79.01 Long term (current) use of anticoagulants; Z98.890 Other specified postprocedural states; Z82.49 Family history of ischemic heart disease and other diseases of the circulatory system; Z86.73 Personal history of transient ischemic attack (TIA), and cerebral infarction without residual deficits; Z79.82 Long term (current) use of aspirin; Z79.899 Other long term (current) drug therapy
CPT/HCPCS: 80048; 85025; 85610; 85730; 36415; 93005 ×2; 92960; J2704; A4620; A4215; A4222; A4221; A4663; A4216; A4606; A4223 ×3; J3490

== ENCOUNTER 2024-10-08 05:51 | Day surgery (SDC) | payer OTHER ==
[2024-10-05 08:56] VITALS: BP 147/68; PULSE 64; RESP 17; TEMP 96.8
[2024-10-05 08:56] LABS: BASOPHILS # (AUTO) 0.03 K/uL (0.00-0.20); BASOPHILS % (AUTO) 0.7 % (0.0-5.0); EOSINOPHILS # (AUTO) 0.16 K/uL (0.00-0.70); EOSINOPHILS % (AUTO) 3.9 % (0.0-8.0); IMMATURE GRANULOCYTE ABSOLUTE 0.03 K/uL (0-1); LYMPHOCYTES # (AUTO) 1.1 K/uL (1.0-4.8); LYMPHOCYTES % (AUTO) 25.5 % (21.0-51.0); MEAN CORPUSCULAR HEMOGLOBIN 35.4 pg (27.0-33.0); MEAN CORPUSCULAR HGB CONC 33.2 g/dL (32.0-36.0); MEAN CORPUSCULAR VOLUME 106.5 fL (79-99); MONOCYTES # (AUTO) 0.7 K/uL (0.1-1.0); MONOCYTES % (AUTO) 15.8 % (3.0-13.0); NEUTROPHILS # (AUTO) 2.2 K/uL (1.8-7.7); NEUTROPHILS % (AUTO) 53.4 % (40.0-77.0); PLATELET COUNT (AUTO) 174 K/uL (130-400); RED BLOOD CELL COUNT(AUTO) 2.91 MIL/uL (4.50-6.20); RED CELL DISTRIBUTION WIDTH 14.7 % (11.0-15.5); WHITE BLOOD COUNT (AUTO) 4.1 K/uL (4.8-10.8)
[2024-10-05 09:07] LABS: CREATININE 1.3 mg/dL (0.5-1.3); POTASSIUM 4.5 mmol/L (3.5-5.1)
[2024-10-05 09:10] LABS: INR 1.02 (0.85-1.15); PROTHROMBIN TIME 11.4 SEC (9.6-11.6)
[2024-10-05 09:11] LABS: PARTIAL THROMBOPLASTIN TIME 33.3 SEC (26.3-35.5)
--- NOTE | 2024-10-05 09:14 | EKG ---
[facility] Test Date: 2024-10-05 Test Time: 09:39:45 Pat Name: JULIO SEN Department: [facility] Room: [facility] Gender: M Natural History Collections Curator: [id number] : 1945 Requested By: ANA SHERWOOD Order Number: [id number] Reading MD: Dorothy Koroma Measurements Intervals [place] Rate: 65 P: 96 MA: 229 QRS: 7 QRSD: 112 T: 43 QT: 464 QTc: 482 Interpretive Statements Sinus rhythm Prolonged MA interval Probable left atrial enlargement Probable anterolateral infarct, old Compared to ECG 09/03/2024 08:30:55 Myocardial infarct finding now present Electronically Signed On 10-08-2024 08:15:46 METAL CANS SUPERVISOR by Dorothy Koroma Please click the below link to view image of tracing.
[~2024-10-08] VITALS: Ht 175.3 cm; Wt 88.5 kg
[2024-10-08] VITALS (16 sets, daily range): BP systolic 105–140; BP diastolic 42–70; PULSE 54–97; RESP 14–16; TEMP 97.2–97.8
[~2024-10-08 05:51] MED LIST changes: +AMIO400T4 PO; -ATOR10TA69 PO; -FURO40TA5 PO; +LISI10TA24 PO; -TAMS-1 PO
[2024-10-08] MEDS ORDERED: 0.9%NACL 1000ML 1,000 ML IV ONE (06:22)
[2024-10-08] MEDS ORDERED: GLYCOPYRROLATE 0.2 MG/ML 5 ML VIAL ONE (06:59)
[2024-10-08] MEDS ORDERED: proPOFol 10 MG/ML 20ML VIAL IV ONE (06:59)
[2024-10-08] MEDS ORDERED: MIDAZOLAM HCL 1 MG/ML 2ML VIAL ONE (06:59)
[2024-10-08] MEDS ORDERED: rocuRONium bROMide 10MG/1ML 5ML VL ONE (06:59)
[2024-10-08] MEDS ORDERED: ketaMINE 50MG/ML SYRINGE 50 MG/ML DISP.SYRIN ONE (07:00)
[2024-10-08] MEDS ORDERED: SUCCINYLCHOLINE CHLORIDE 20 MG/ML 10 ML VIAL ONE (07:01)
[2024-10-08] MEDS ORDERED: phenylEPHRINE HCL 10 MG/ML 1ML VIAL IV ONE ×2 (07:02→07:03)
[2024-10-08] MEDS ORDERED: NEOSTIGMINE METHYLSULFATE 1MG/ML IV ONE (07:02)
[2024-10-08] MEDS ORDERED: 0.9%NACL 1000ML 1,000 ML IV SCH (07:30)
[2024-10-08] MEDS ORDERED: LIDOCAINE HCL 400MG/20ML VIAL ONE (07:45)
[2024-10-08] MEDS ORDERED: HEParin 10,000 UNIT/10ML (1,000 UNIT/ML) VIAL ONE ×2 (07:54→08:33)
[2024-10-08] MEDS ORDERED: HEParin-NS 1,000 UNIT/500 ML 500 ML IV ONE (08:00)
[2024-10-08] MEDS ORDERED: PROTamine SULFate 10 MG/ML 25ML VIAL IV ONE (10:25)
[2024-10-08] MEDS ORDERED: ondanSETRON 4MG INJ ONE (10:25)
[2024-10-08] MEDS ORDERED: SUCR1TAB28 PO (10:54)
[2024-10-08] MEDS ORDERED: PANT20TA PO (10:54)
[2024-10-08] MEDS ORDERED: AMIO400T4 PO (10:54)
[2024-10-08] MEDS ORDERED: METO-391 PO (10:54)
[2024-10-08] MEDS ORDERED: acetaMINOPHEN 325 MG TAB PO PRN ×2 (11:00)
--- NOTE | 2024-10-08 12:40 | NUR ---
BOTH PT AND GIRLFRIEND GIVEN VERBAL AND WRITTEN DISCHARGE INSTRUCTIONS. IV REMOVED SITE ASYMPTOMATIC. BOTH EXPLAINED THAT DR. IBRAHIM WANTS TO CUT AMIODARONE TO 200MG A DAY AND METOPROLOL 1 TIME A DAY.
== END 2024-10-08 12:50 | disposition home or self-care (01) ==
LOC: DAH 05:51
PROVIDERS: ATTEND Student in an Organized Health Care Education/Training Program
DX: I48.19 Other persistent atrial fibrillation (principal); I48.0 Paroxysmal atrial fibrillation; I48.3 Typical atrial flutter; I25.10 Atherosclerotic heart disease of native coronary artery without angina pectoris; I10 Essential (primary) hypertension; E78.5 Hyperlipidemia, unspecified; H54.40 Blindness, one eye, unspecified eye; Z95.1 Presence of aortocoronary bypass graft; Z79.01 Long term (current) use of anticoagulants; Z79.82 Long term (current) use of aspirin; Z79.899 Other long term (current) drug therapy
CPT/HCPCS: 80048; 85025; 85610; 85730; 36415; 93005; 93656; 93655; 93657; A4344; C1894 ×3; C1732 ×3; A4649 ×2; C1760 ×3; C1730; C1766; J3490 ×4; J0330; J7030; J1644 ×3; J2250; J2704; J2405; J2710; J2371 ×2; A4215; A4222; A4221; A4663; A4216; A4606; J2720; A4223 ×3

== ENCOUNTER → 2024-11-06 | Outpatient (CLI) | payer OTHER ==
[~2024-11-06] MED LIST changes: +PANT20TA PO; +SUCR1TAB28 PO
--- NOTE | 2024-11-07 12:18 | HMCSR ---
APPROVED REPORT Bilateral Lower Extremity Venous Study for DVT., Venous Competence. Indications i87.2 Vein Imaging CFV (R): Normal flow, augmentation and compression. No evidence of DVT. 12.6mm 667ms of reflux. SFJ (R): Normal flow, augmentation and compression. No evidence of DVT. FEM (R): Normal flow, augmentation and compression. No evidence of DVT. POP (R): Normal flow, augmentation and compression. No evidence of DVT. DFV (R): Normal flow, augmentation and compression. No evidence of DVT. PTV (R): Normal flow, augmentation and compression. No evidence of DVT. GSV (R): Peroneals (R): Normal flow, augmentation and compression. No evidence of DVT. CFV (L): Normal flow, augmentation and compression. No evidence of DVT. 9.5mm 1256ms SFJ (L): Normal flow, augmentation and compression. No evidence of DVT. FEM (L): Normal flow, augmentation and compression. No evidence of DVT. POP (L): Normal flow, augmentation and compression. No evidence of DVT. DFV (L): Normal flow, augmentation and compression. No evidence of DVT. PTV (L): Normal flow, augmentation and compression. No evidence of DVT. Peroneals (L): Normal flow, augmentation and compression. No evidence of DVT. Technologist Impression Deep veins of bilateral lower extrimities appear patent and compressible without thrombus. LCFV reflux seen Venous insufficiency seen on RGSV, LGSV,LSSV RGSV Junction 4.6mm 1144ms thigh2.8mm 294ms knee 3.0mm 0.0ms calf 2.3mm 0.0ms RSSV appears calfcified Prox 2.5mm 0.0ms Mid 2.5mm 0.0ms LGSV junction 6.2mm 0.0ms thigh cyst noted GSV not seen knee 1.9mm 0.0ms calf 2.9mm 778ms LSSV appears calcified Prox 4.2ms 0.0ms Mid 4.6mm 4625ms Conclusion LCFV reflux seen Venous insufficiency seen on RGSV, LGSV,LSSV Conclusion LCFV reflux seen Venous insufficiency seen on RGSV, LGSV,LSSV
== END | disposition home or self-care (01) ==
LOC: SHCH 15:09
PROVIDERS: ATTEND Internal Medicine Cardiovascular Disease
DX: I87.2 Venous insufficiency (chronic) (peripheral) (principal); I87.1 Compression of vein
CPT/HCPCS: 93970

== ENCOUNTER → 2025-01-20 | Outpatient (CLI) | payer OTHER | END | disposition home or self-care (01) | LOC: SHCH 08:18 | PROVIDERS: ATTEND Internal Medicine Cardiovascular Disease | DX: I70.0 Atherosclerosis of aorta (principal); I73.9 Peripheral vascular disease, unspecified; R14.0 Abdominal distension (gaseous) | CPT/HCPCS: 93978 ==

== ENCOUNTER 2025-02-13 07:53 | Emergency (ER) | payer OTHER ==
[~2025-02-13] VITALS: Ht 170.2 cm; Wt 88.5 kg
--- NOTE | 2025-02-13 08:30 | NUR ---
PT'S CATHETER WAS PINCHED IN THE STATLOCK. SOON UNCLAMPED IT IT RELEASED 1400 MF OF CLEAR YEALLOW URINE ( NO ODOR).BLADDER SCAN DID NOT SHOW ANY RESIDUE URINE POST. LEG BAG AND STATLOCK CHANGED.PT FEELS MUCH MORE COMFORTABLE NOW.
--- NOTE | 2025-02-13 08:30 | ERN ---
General Chief Complaint: Urinary Catheter Problems Stated Complaint: LEAKING CATHETER Time Seen by MD: 07:58 History of Present Illness Initial Comments This is a 79-year-old male who three days ago had a recurrent urethral stricture repaired by a urologist. He was discharged home with a Lynch catheter. Earlier today he noted that the catheter had come loose from the clip that is part of the Lynch spaulding on his right thigh. He reclamped the Lynch catheter and sometime later noted a lot of urine spreading down his leg. He does not know if the Lynch catheter is leaking or if he is spilling urine around it. No systemic functions of infection. Allergies: Coded Allergies: No Known Allergies (Verified Allergy, Unknown, 04/03/18) Home Meds Active Scripts Sucralfate (Carafate) 1 Gram Tablet, 1 TAB PO QID for 14 Days, #56 TAB 0 Refills Must dissolve in water. Please do not crush Prov:ANA LAWLER MD 10/08/24 Pantoprazole Sodium (Protonix) 20 Mg Tablet.dr, 1 TAB PO DAILY for 30 Days, #30 TAB 0 Refills Prov:ANA LAWLER MD 10/08/24 Amiodarone HCl (Amiodarone HCl) 400 Mg Tablet, 200 MG PO DAILY, #30 TAB 0 Refills Prov:ANA LAWLER MD 10/08/24 Metoprolol Succinate (Metoprolol Succinate) 50 Mg Tab.er.24h, 25 MG PO DAILY for 30 Days, #30 TAB 1 Refill Prov:ANA LAWLER MD 10/08/24 Reported Medications Lisinopril (Lisinopril) 10 Mg Tablet, 10 MG PO DAILY, TAB 10/05/24 Mv-Min/Folic/K1/Lycopen/Lutein (Centrum Silver Men Tablet) 300 Mcg-60 Mcg-600 Mcg-300 Mcg Tablet, 1 EACH PO DAILY, TAB 07/30/24 Rivaroxaban (Xarelto) 20 Mg Tablet, 20 MG PO DAILY, TAB 05/25/24 Aspirin (ASPIRIN 81 MG ECTAB) 81 Mg Ectab, 81 MG PO AM, TAB.EC 06/28/23 Past Medical History Past Medical History: High Cholesterol, Hypertension Past Surgical History: CABG Surgical History Other: SX THIS PAST SATURDAY AT [facility] CLEARED URETHRAL STRICTURE ROS Dictation Review of systems is negative Physical Exam General Appearance: (+) no apparent distress Orientation: (+) alert, (+) oriented x 3 Genital Comment I unclamped the Lynch catheter from the clip on his right leg. There was an immediate release of a large amount of clear urine. The patient had pinched the Lynch catheter closed when he put it back into the clip. Total amount of urine released was 1400 cc. Follow-up bladder ultrasound showed a residual volume of 0. MDM Patient's Lynch catheter was pinched off by the clamp. I think the position of the clamp was too far away from the tip of the patient's penis on his right thigh. You can see where the clip adherence bandage had slipped a little bit medially and the current physician of the bladder clip seemed to be under a little bit of tension. We replaced the bladder clamp with a new one closer to the tip of the patient's penis. ED Course Orders Procedure Category Date Status Time *Nursing CPOE 02/13/25 Transmitted Communication: 08:00 Vital Signs Date Time Temp Pulse Resp B/P (MAP) Pulse Ox O2 Delivery O2 Flow Rate FiO2 02/13/25 07:56 97.5 68 16 132/80 98 0 DX & DISP Disposition: Discharge Departure Impression: Primary Impression: Lynch catheter problem Condition: Stable Additional Instructions: It is highly unlikely that you have a an urinary tract infection from the short bout of blockage and bladder distention. However if you have signs and symptoms of an infection abdominal pain fever nausea vomiting or foul-smelling urine please return to the emergency room. Referrals: BRITNI FARRIS M.D. (PCP) VALERIY ANDERSON MD February 13, 2025 08:30
[2025-02-13 08:50] VITALS: BP 130/76; PULSE 66; RESP 16; TEMP 97.5; O2SAT 97
== END 2025-02-13 09:05 | disposition home or self-care (01) ==
LOC: EDH 07:53
DX: T83.9XXA Unspecified complication of genitourinary prosthetic device, implant and graft, initial encounter (principal); E78.00 Pure hypercholesterolemia, unspecified; I10 Essential (primary) hypertension; Z79.01 Long term (current) use of anticoagulants; Z79.899 Other long term (current) drug therapy; Z95.1 Presence of aortocoronary bypass graft; Y82.8 Other medical devices associated with adverse incidents; Y92.89 Other specified places as the place of occurrence of the external cause
CPT/HCPCS: 99281; 99284

== ENCOUNTER 2025-05-29 05:37 | Emergency (ER) | payer OTHER ==
[~2025-05-29] VITALS: Ht 175.3 cm; Wt 89.8 kg
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
[2025-05-29] MEDS: BACITRACIN 1 EACH PACKET TP ONE (06:25)
--- NOTE | 2025-05-29 06:40 | NUR ---
WOUND CARE: IRRIGATED LEFT POSTERIOR FOREARM SKIN TEAR WITH NORMAL SALINE, DRIED, APPLIED BACITACIN, APPLIED NON ADHERENT PAD, 4X4 X3, WRAPPED WITH KERLIX, PATIENT TOLERated well.
[2025-05-29 06:43] VITALS: BP 134/75; PULSE 81; RESP 16; TEMP 98.6; O2SAT 99
== END 2025-05-29 06:54 | disposition home or self-care (01) ==
LOC: EDH 05:37
DX: S51.812A Laceration without foreign body of left forearm, initial encounter (principal); E78.00 Pure hypercholesterolemia, unspecified; I10 Essential (primary) hypertension; I25.10 Atherosclerotic heart disease of native coronary artery without angina pectoris; I48.91 Unspecified atrial fibrillation; Z79.01 Long term (current) use of anticoagulants; Z79.899 Other long term (current) drug therapy; Z95.1 Presence of aortocoronary bypass graft; V09.9XXA Pedestrian injured in unspecified transport accident, initial encounter; Y93.89 Activity, other specified; Y92.89 Other specified places as the place of occurrence of the external cause; Y99.8 Other external cause status
CPT/HCPCS: 90471; 90714; 99283